=== PATIENT | male | born 1945 | race Caucasian/White ===

== ENCOUNTER 2022-06-08 17:03 | Emergency (ER) | payer OTHER ==
--- NOTE | 2022-06-08 17:41 | RAD REPORT ---
EXAM DESCRIPTION: Fanny Single View06/08/2022 5:31 pm CLINICAL HISTORY: CHEST PAIN COMPARISON: <Comparisons> TECHNIQUE: Portable AP view of the chest. FINDINGS: The lungs are clear. No pneumothorax or effusion. Moderate cardiomegaly. Sequelae of prior median sternotomy. Left chest wall pacer/ AICD in place. The mediastinal contours are unremarkable. IMPRESSION: No acute pulmonary process. Moderate cardiomegaly
[2022-06-08 17:55] LABS: Absolute Lymphocytes (CBC) 0.7 K/uL (0.7-4.9); Hematocrit 34.7 % (39.6-49.0); Lymphocytes % 4.3 % (15.3-44.8); MCV 78.7 fL (80-100); MPV 8.4 fL (7.6-11.3); RBC Red Blood Cell Count 4.41 M/uL (4.33-5.43)
[2022-06-08 18:09] LABS: Troponin High Sensitivity 14.7 pg/mL (<58.9)
--- NOTE | 2022-06-08 21:19 | ER ---
Nurse's Notes [facility] Name: Vance Sykes Age: 77 yrs Sex: Male : 1945 Arrival Date: 06/08/2022 Time: 17:15 Bed 6 Private MD: Diagnosis: Anemia, unspecified;Essential (primary) hypertension;Shaking Presentation: 06/08 17:16 Chief complaint: Patient states: Chest pain, congestion, chills, high BP started today. ll1 2nd episode of chills/shaking past 24 hours. Coronavirus screen: Vaccine status: Patient reports receiving the 2nd dose of the covid vaccine. Client denies travel out of the [place] in the last 14 days. congestion, fatigue, shortness of breath, Client presents with at least one sign or symptom that may indicate coronavirus-19. Standard/surgical mask placed on the client. Ebola Screen: Patient denies travel to an Ebola-affected area in the 21 days before illness onset. Initial Sepsis Screen: Does the patient meet any 2 criteria? No. Patient's initial sepsis screen is negative. Does the patient have a suspected source of infection? Yes: Other: chills/congestion. Risk Assessment: Do you want to hurt yourself or someone else? Patient reports no desire to harm self or others. Onset of symptoms was June 08, 2022. 17:16 Method Of Arrival: Wheelchair ll1 17:16 Acuity: JAYMIE 2 ll1 Triage Assessment: 17:19 General: Appears uncomfortable, Behavior is calm, cooperative, appropriate for age. ll1 General: Reports chills for fatigue for. Pain: Complains of pain in chest Quality of pain is described as pressure. Cardiovascular: Reports chest pain, fatigue, shortness of breath. Respiratory: Reports shortness of breath pain with respiration. Historical: - Allergies: 17:18 PENICILLINS; ll1 - PMHx: 17:18 Hypertensive disorder; Diabetes mellitus; Coronary atherosclerosis; ll1 - PSHx: 17:18 2 open heart sx; ll1 - Immunization history:: Client reports receiving the 2nd dose of the Covid vaccine. - Social history:: Smoking status: Patient/guardian denies using tobacco, the patient reports quitting approximately 25 years ago. Screenin:44 [facility] ED Fall Risk Assessment (Adult) Score/Fall Risk Level 0 - 2 = Low Risk hb Oriented to surroundings, Maintained a safe environment, Educated pt \T\ family on fall prevention, incl call for assistance when getting out of bed. Abuse screen: Denies threats or abuse. Denies injuries from another. Nutritional screening: No deficits noted. Tuberculosis screening: No symptoms or risk factors identified. Assessment: 17:44 General: Appears in no apparent distress. Behavior is cooperative, anxious. Pain: Pain hb currently is 0 out of 10 on a pain scale. at worst was 10 out of 10 on a pain scale. Neuro: Level of Consciousness is awake, alert, obeys commands, Oriented to person, place, time, situation. Cardiovascular: Patient's skin is warm and dry. Respiratory: Respiratory effort is even, unlabored, Respiratory pattern is regular, symmetrical. GI: No signs and/or symptoms were reported involving the gastrointestinal system. : No signs and/or symptoms were reported regarding the genitourinary system. EENT: No signs and/or symptoms were reported regarding the EENT system. Derm: Skin is diaphoretic, Skin is pink, Skin temperature is warm. Musculoskeletal: No signs and/or symptoms reported regarding the musculoskeletal system. 19:10 Reassessment: Patient appears in no apparent distress at this time. Patient and/or jb4 family updated on plan of care and expected duration. Pain level reassessed. Patient is alert, oriented x 3, equal unlabored respirations, skin warm/dry/pink. 20:20 Reassessment: Patient appears in no apparent distress at this time. Patient and/or jb4 family updated on plan of care and expected duration. Pain level reassessed. Patient is alert, oriented x 3, equal unlabored respirations, skin warm/dry/pink. 21:42 Reassessment: Patient appears in no apparent distress at this time. Patient and/or jb4 family updated on plan of care and expected duration. Pain level reassessed. Patient is alert, oriented x 3, equal unlabored respirations, skin warm/dry/pink. Pt assisted to vehicle via wheelchair. Denies questions or concerns. Vital Signs: 17:16 BP 159 / 89; Pulse 84; Resp 20; Temp 99; Pulse Ox 93% on R/A; Weight 111.58 kg; Height ll1 6 ft. 0 in. ; Pain 10/10; 17:45 BP 142 / 59; Pulse 77; Resp 17; Pulse Ox 94% on R/A; hb 19:30 BP 128 / 58; Pulse 70; Resp 26; Pulse Ox 94% on R/A; jb4 20:20 BP 135 / 58; Pulse 70; Resp 18; Pulse Ox 93% ; jb4 21:42 BP 142 / 63; Pulse 73; Resp 16; Pulse Ox 97% on R/A; jb4 17:16 Body Mass Index 33.36 (111.58 kg, 182.88 cm) ll1 17:16 Pain Scale: Adult 1 ED Course: 17:15 Patient arrived in ED. ll1 17:18 Triage completed. ll1 17:19 Arm band placed on Patient placed in an exam room, on a stretcher. EKG completed in ll1 triage. Results shown to MD. 17:23 Aj Harris MD is Attending Physician. kdr 17:33 XRAY Chest (1 view) In Process Unspecified. EDMS 17:40 Patient maintains SpO2 saturation greater than 95% on room air. hb 17:41 Inserted saline lock: 20 gauge in right antecubital area, using aseptic technique. hb 19:09 Attending Physician role handed off by Aj Harris MD ms3 19:09 [place] DO is Attending Physician. ms3 19:43 Franklin Pedraza, RN is Primary Nurse. jb4 21:43 No provider procedures requiring assistance completed. IV discontinued, intact, jb4 bleeding controlled, No redness/swelling at site. Pressure dressing applied. Administered Medications: No medications were administered Medication: 17:44 VIS not applicable for this client. hb Outcome: 21:19 Discharge ordered by . ms3 21:43 Discharged to home via wheelchair, with family. jb4 21:43 Condition: stable 21:43 Discharge instructions given to patient, Instructed on discharge instructions, follow up and referral plans. Demonstrated understanding of instructions, follow-up care. 21:44 Patient left the ED. jb4 Signatures: Dispatcher [employer] EDMS Aj Harris MD MD [facility] Kaelyn Gunter RN RN Franklin Pedraza, FELIPE WANG jb4 Isaiah Gutierrez RN RN [facility] Elier Park DO DO ms3
--- NOTE | 2022-06-08 21:20 | EDPHYS ---
Physician Documentation [facility] Name: Vance Sykes Age: 77 yrs Sex: Male : 1945 Arrival Date: 06/08/2022 Time: 17:15 Bed 6 Private MD: ED Physician [place] HPI: 06/08 18:12 This 77 yrs old Male presents to ER via Wheelchair with complaints of Chest Pain, kdr Possible Cardiac Related, Blood Pressure Problem. 18:12 Patient states that he has been having 20-minute episodes of shaking and chills every 2 kdr to 3 days for some time now. Today he had 2 episodes the first 1 was about 40 minutes long and the second 20 minutes along on the same day. So the increased frequency and duration concerned him and he presented for evaluation. Patient states that typically post shaking chills episode, he has diffuse diaphoresis and will soak his shirts. That is occurring today at initial presentation. Patient otherwise alert and oriented and appropriate he is appears mildly dyspneic but otherwise not uncomfortable or toxic. Onset: The symptoms/episode began/occurred this morning, at 02:00. Severity of symptoms: At their worst the symptoms were moderate severe just prior to arrival, in the emergency department the symptoms have improved markedly. As noted above, the patient is concerned because of the increased frequency and duration of the episodes. He has been to see cardiology and other specialist without a specific etiology being found. The patient has been recently seen by a physician: the patient's primary care provider. Historical: - Allergies: 17:18 PENICILLINS; ll1 - PMHx: 17:18 Hypertensive disorder; Diabetes mellitus; Coronary atherosclerosis; ll1 - PSHx: 17:18 2 open heart sx; ll1 - Immunization history:: Client reports receiving the 2nd dose of the Covid vaccine. - Social history:: Smoking status: Patient/guardian denies using tobacco, the patient reports quitting approximately 25 years ago. ROS: 18:12 Constitutional: Negative for fever, chills, and weight loss, patient has recurrent kdr shaking and chills that lasted about 20 minutes until the 2 episodes today Eyes: Negative for injury, pain, redness, and discharge, Neck: Negative for injury, pain, and swelling, Abdomen/GI: Negative for abdominal pain, nausea, vomiting, diarrhea, and constipation, Back: Negative for injury and pain, : Negative for injury, bleeding, discharge, and swelling, MS/Extremity: Negative for injury and deformity, Skin: Negative for injury, rash, and discoloration, Neuro: Negative for headache, weakness, numbness, tingling, and seizure activity. Psych: Negative for depression, anxiety, suicide ideation, homicidal ideation, and hallucinations, Allergy/Immunology: Negative for hives, rash, and allergies, Endocrine: Negative for neck swelling, polydipsia, polyuria, polyphagia, and marked weight changes, Hematologic/Lymphatic: Negative for swollen nodes, abnormal bleeding, and unusual bruising. 18:12 Cardiovascular: Negative for chest pain, edema, orthopnea, palpitations, paroxysmal nocturnal dyspnea. Exam: 18:12 Constitutional: This is a well developed, well nourished patient who is awake, alert, kdr and in no acute distress. Head/Face: Normocephalic, atraumatic. Eyes: Pupils equal round and reactive to light, extra-ocular motions intact. Lids and lashes normal. Conjunctiva and sclera are non-icteric and not injected. Cornea within normal limits. Periorbital areas with no swelling, redness, or edema. Neck: Trachea midline, no thyromegaly or masses palpated, and no cervical lymphadenopathy. Supple, full range of motion without nuchal rigidity, or vertebral point tenderness. No Meningismus. Chest/axilla: Normal chest wall appearance and motion. Nontender with no deformity. No lesions are appreciated. Cardiovascular: Regular rate and rhythm with a normal S1 and S2. No gallops, murmurs, or rubs. Normal PMI, no JVD. No pulse deficits. Respiratory: Lungs have equal breath sounds bilaterally, clear to auscultation and percussion. No rales, rhonchi or wheezes noted. No increased work of breathing, no retractions or nasal flaring. Abdomen/GI: Soft, non-tender, with normal bowel sounds. No distension or tympany. No guarding or rebound. No evidence of tenderness throughout. Back: No spinal tenderness. No costovertebral tenderness. Full range of motion. Skin: Warm, dry with normal turgor. Normal color with no rashes, no lesions, and no evidence of cellulitis. MS/ Extremity: Pulses equal, no cyanosis. Neurovascular intact. Full, normal range of motion. Neuro: Awake and alert, GCS 15, oriented to person, place, time, and situation. Cranial nerves II-XII grossly intact. Motor strength 5/5 in all extremities. Sensory grossly intact. Cerebellar exam normal. Normal gait. Psych: Awake, alert, with orientation to person, place and time. Behavior, mood, and affect are within normal limits. 21:30 ECG was reviewed by the Attending Physician. ms3 Vital Signs: 17:16 BP 159 / 89; Pulse 84; Resp 20; Temp 99; Pulse Ox 93% on R/A; Weight 111.58 kg; Height ll1 6 ft. 0 in. ; Pain 10/10; 17:45 BP 142 / 59; Pulse 77; Resp 17; Pulse Ox 94% on R/A; hb 19:30 BP 128 / 58; Pulse 70; Resp 26; Pulse Ox 94% on R/A; jb4 20:20 BP 135 / 58; Pulse 70; Resp 18; Pulse Ox 93% ; jb4 21:42 BP 142 / 63; Pulse 73; Resp 16; Pulse Ox 97% on R/A; jb4 17:16 Body Mass Index 33.36 (111.58 kg, 182.88 cm) ll1 17:16 Pain Scale: Adult ll1 MDM: 18:12 Data reviewed: vital signs, nurses notes, lab test result(s), radiologic studies. kdr 19:06 Patient medically screened. kdr 21:26 Differential Diagnosis Acute coronary syndrome versus hypotension versus electrolyte ms3 abnormality. Consideration of Admission/Observation Escalation of care including admission/observation considered. Troponin negative x2. Independent interpretation of the following test(s) in the Emergency Department EKG: See my EKG interpretation above residential monitor: rate is 72 beats/min, Rhythm is paced rhythm with no ectopy, Interpretation: normal rate. 21:30 Counseling: I had a detailed discussion with the patient and/or guardian regarding: the ms3 historical points, exam findings, and any diagnostic results supporting the discharge/admit diagnosis, lab results, radiology results, the need for outpatient follow up, to return to the emergency department if symptoms worsen or persist or if there are any questions or concerns that arise at home. ED course: Discussed labs, chest x-ray, EKG with the patient and his family. They understand and agree with plan. Patient to follow-up with primary care physician in 2 to 3 days. All questions were answered. Return precautions discussed include worsening symptoms, or any other concerns. On reevaluation patient is alert and orient x4, no apparent distress, nontoxic, ambulatory in the emergency department, speaking full sentences. 06/08 17:23 Order name: Basic Metabolic Panel; Complete Time: 18:43 [facility] 06/08 17:23 Order name: CBC with Diff; Complete Time: 18:07 [facility] 06/08 17:23 Order name: Troponin HS; Complete Time: 18:43 [facility] 06/08 18:45 Order name: Troponin High Sensitivity: Draw two hours after initial draw; Complete kdr Time: 21:10 06/08 17:23 Order name: XRAY Chest (1 view); Complete Time: 18:07 [facility] 06/08 17:23 Order name: EKG; Complete Time: 17:24 [facility] 06/08 17:23 Order name: Cardiac monitoring; Complete Time: 17:23 [facility] 06/08 17:23 Order name: EKG - Nurse/Tech; Complete Time: 17:23 [facility] 06/08 17:23 Order name: IV Saline Lock; Complete Time: 17:43 [facility] 06/08 17:23 Order name: Labs collected and sent; Complete Time: 17:43 [facility] 06/08 17:23 Order name: O2 Per Protocol; Complete Time: 17:23 [facility] 06/08 17:23 Order name: O2 Sat Monitoring; Complete Time: 17:23 kdr EC:30 Rate is 80 beats/min. Rhythm is regular. Left axis deviation noted. Clinical ms3 impression: Ventricular Paced. Interpreted by me. Reviewed by me. Administered Medications: No medications were administered Disposition Summary: 06/08/22 21:19 Discharge Ordered Location: Home ms3 Condition: Stable ms3 Diagnosis - Anemia, unspecified ms3 - Essential (primary) hypertension ms3 - Shaking ms3 Discharge Instructions: - Discharge Summary Sheet ms3 - Anemia ms3 - Hypertension, Adult ms3 Forms: - Medication Reconciliation Form ms3 - Thank You Letter ms3 - Antibiotic Education ms3 - Prescription Opioid Use ms3 Signatures: Dispatcher [employer] EDMS Aj Harris MD MD kdr Lewis, Lynsay, RN RN ll1 [place] DO DO ms3 Corrections: (The following items were deleted from the chart) 21:30 21:26 Independent interpretation of the following test(s) in the Emergency Department ms3 EKG: See my EKG interpretation above residential monitor: rate is 72 beats/min, with no ectopy, ms3
[2022-06-09 03:12] VITALS: TEMP 99
[2022-06-09 03:17] VITALS: BP 142/63; O2SAT 97
--- NOTE | 2022-06-09 17:35 | EKG ---
Test Date: 2022-06-08 Test Time: 17:11:10 Cra Officer: [place] MEASUREMENT RESULTS: Intervals: Rate: 80 OK: QRSD: 130 QT: 416 QTc: 479 [place]: P: OK: QRS: -73 T: 107 INTERPRETIVE STATEMENTS: Electronic ventricular pacemaker No previous ECG available for comparison Electronically Signed On 06-09-22 17:34:56 CDT by Moe Byers
== END 2022-06-08 21:44 | disposition home or self-care (01) ==
LOC: ER 17:03
DX: D64.9 Anemia, unspecified (principal); I10 Essential (primary) hypertension; R25.1 Tremor, unspecified; E11.9 Type 2 diabetes mellitus without complications; Z88.0 Allergy status to penicillin
CPT/HCPCS: 36415; 71045; 80048; 84484; 85025; 93005; 99284